=== PATIENT | male | born 1955 | race Caucasian/White ===

== ENCOUNTER 2017-02-19 09:37 | Outpatient (CLI) | payer OTHER ==
[2015-06-16 00:24] VITALS: BP 110/62
--- NOTE | 2017-02-19 15:26 | Diagnostic Imaging Report ---
JERSON GRACIA [facility] [address] [facility].[address] [address] Report Submission Date: Feb 19, 2017 1:15:23 PM CDT Patient Study Name: CORBY ROMO Date: Feb 19, 2017 9:43:22 AM CDT Modality Type: CR Gender: M Description: SHOULDER : 57 Institution: [facility] Physician: JERSON GRACIA Left shoulder - three views Clinical history: Fall on 02/15/2017. Pain. Findings: Examination left shoulder in multiple views demonstrates degenerative changes in the acromioclavicular joint with narrowing of the joint space and osteophyte formation. The glenohumeral relationship is anatomic. There is no evident fracture or dislocation. Impression: 1. 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 2. No fracture. Electronically signed on Feb 19, 2017 1:15:23 PM CDT by: Evan CARROLL
--- NOTE | 2017-02-19 15:27 | Diagnostic Imaging Report ---
JERSON GRACIA [facility] [address] [facility].[address] [address] Report Submission Date: Feb 19, 2017 1:16:26 PM CDT Patient Study Name: CORBY ROMO Date: Feb 19, 2017 9:46:46 AM CDT Modality Type: CR Gender: M Description: CHEST : 57 Institution: [facility] Physician: JERSON GRACIA Left ribs - three views Clinical history: Fall on 02/15/2017. Pain. Findings: Examination of the left ribs in AP, oblique and coned-down views of the lower ribs fails to demonstrate evidence of fracture. There is no pneumothorax. Impression: 1. Negative study. Electronically signed on Feb 19, 2017 1:16:26 PM CDT by: Evan CARROLL
== END 2017-02-19 09:40 ==
LOC: RAD 09:37
PROVIDERS: ATTEND Physician Assistant
DX: M25.512 Pain in left shoulder (principal); R07.81 Pleurodynia
CPT/HCPCS: 71100; 73030

== ENCOUNTER 2017-11-28 08:07 | Outpatient (CLI) | payer OTHER ==
[2015-06-16 00:24] VITALS: BP 110/62
[2017-11-28 08:29] LABS: BASOPHILS % 0.8 (0.0-1.5); EOSINOPHILS % 3.2 % (0.0-6.8); MEAN CORPUSCULAR VOLUME 90.4 fl (80.0-100.0); NEUTROPHILS # 4.8 # k/uL (1.4-7.7)
[2017-11-28 09:39] LABS: eGFR (African) > 60; eGFR (Non-African) > 60
--- NOTE | 2017-11-28 10:04 | Diagnostic Imaging Report ---
DANE SAUER [facility] [address] [facility] [address] [address] Report Submission Date: Nov 28, 2017 8:39:14 AM BEER MAKER Patient Study Name: CORBY ROMO Date: Nov 28, 2017 8:21:09 AM BEER MAKER Modality Type: CR Gender: M Description: CHEST : 57 Institution: [facility] Physician: DANE SAUER Examination: PA and lateral chest. History: CXR, SCREENING FOR TB, ALLERGIC TO PPD, SMOKER X50 YEARS (Hx) / SCREENING FOR TB, ALLERGIC TO PPD (DICOM Hx) / SCREENING FOR TB, ALLERGIC TO PPD (Pt comments) Comparison exam: Rib series dated 19 February 2017 Findings: PA lateral chest demonstrate a normal cardiac and mediastinal silhouette. No focal infiltrate. No blunting of the costophrenic margins. No evidence for apical parenchymal scarring. Possible old left 5th rib fracture. Impression: No acute pulmonary process. No evidence for active tuberculosis by plain film sensitivity. Electronically signed on Nov 28, 2017 8:39:14 AM BEER MAKER by: David CARROLL
== END 2017-11-28 08:10 ==
LOC: LAB 08:07
PROVIDERS: ATTEND Family Medicine
DX: Z11.1 Encounter for screening for respiratory tuberculosis (principal); Z51.81 Encounter for therapeutic drug level monitoring; E78.1 Pure hyperglyceridemia
CPT/HCPCS: 36415; 71020; 80053; 80061; 85025

== ENCOUNTER 2019-08-17 09:08 | Outpatient (CLI) | payer OTHER ==
[2015-06-16 00:24] VITALS: BP 110/62
--- NOTE | 2019-08-17 09:51 | Diagnostic Imaging Report ---
PATIENT MR#: [id number] PATIENT PATIENT NAME: CORBY ROMO DATE OF : 1955 REFERRING PHYSICIAN: Josie Jacobson EXAM DATE: 08/17/2019 ACCESSION NUMBER: [id number] EXAM DESCRIPTION: CHEST 2VIEW CHEST, 2 views CLINICAL INDICATION: ORDER STATES TB SCREENING (Hx) / ----- Note time : 08/17/2019 9:24:25 AM User : Bertin Bhandari ORDER STATES TB SCREENING (DICOM Hx) (DICOM Hx) FINDINGS: 2 views of the chest without prior reveals no consolidation, pleural effusion or pneumothorax. The heart size is normal. IMPRESSION: No acute pulmonary disease Read by: Dr. Galen Alex Transcribed by: Transcribed Date: Electronically signed by: Dr. Galen Alex Date signed: 08/17/2019 9:50:53 AM
== END 2019-08-17 09:18 ==
LOC: RAD 09:08
PROVIDERS: ATTEND Nurse Practitioner Family
DX: Z11.1 Encounter for screening for respiratory tuberculosis (principal)
CPT/HCPCS: 71046